=== PATIENT | male | born 1940 | race Caucasian/White ===

== ENCOUNTER → 2023-07-20 14:10 | Outpatient (REF) | payer MEDICARE, BC, SELFPAY | LOC: RAD 14:10 | PROVIDERS: ATTENDING PHYSICIAN Nurse Practitioner Adult Health | DX: R05.3 Chronic cough (principal) | CPT/HCPCS: 71046 ==

== ENCOUNTER → 2024-04-03 14:59 | Outpatient (REF) | payer MEDICARE, BC, SELFPAY | LOC: RCS 14:59 | PROVIDERS: ATTENDING PHYSICIAN Psychiatry & Neurology Neurology; FAMILY PHYSICIAN Internal Medicine | DX: I48.91 Unspecified atrial fibrillation (principal) | CPT/HCPCS: 93005 ==

== ENCOUNTER 2024-12-17 18:07 | Emergency (ER) | payer SELFPAY ==
[2024-12-17 18:09] VITALS: BP 169/84
[2024-12-17] MEDS: TYLENOL 650 MG PO (22:07)
[2024-12-17] MEDS: ADACEL 0.5 ML IM (22:41)
--- NOTE | 2024-12-17 22:46 | ED.GENMED ---
History of Present Illness
General
Chief Complaint: Fall
Source: patient
Exam Limitations: none
Time Seen by Provider: 12/17/24 20:54
Nursing documentation reviewed up to this point in time: agreed with
History of Present Illness
History of Present Illness:
Patient is a 84-year-old male with history atrial fibrillation, hypertension, hyperlipidemia, dementia who presents to the emergency department for evaluation following mechanical fall earlier today. Patient's states he was at memory care at
[facility] and reports that earlier today he was in the bathroom when he missed stepped and fell backwards striking his back on the toilet. She believes he may have hit his head although states there was no loss of consciousness.
Patient has been complaining of pain in his back since fall. He also sustained a skin tear to his left arm.
Patient's states he is at his baseline mental status.
Patient denies any headache or neck pain. He denies any chest pain, shortness of breath, or abdominal pain. No numbness/tingling in lower extremities or weakness. No bowel/bladder incontinence or groin paresthesias.
Past History
Past History
ED Past Medical History: Cancer (Prostate), CVA, GERD, HTN, Hypercholesterolemia, Hyperthyroidism and Other (radiation cystitis)
ED Past Surgical History: Orthopedic and Other (Hernia, partial thyroidectomy, iliostomy Apr)
Social History
Tobacco: Non-smoker
Personal:
Living: with family
Review of Systems
Review of Systems
Allergies reviewed?: Yes
All Other Systems: ROS reviewed and negative except as documented in HPI and ROS
Phy Exam
Physical Exam
Physical Exam:
Vitals: Hypertensive, otherwise vital signs stable. Afebrile
General: Patient is well appearing, no acute distress
Skin: Approximate 11 cm V-shaped laceration to left dorsal forearm.
Head: Normocephalic, atraumatic
Eyes: Sclera nonicteric. EOMs intact. No nystagmus.
Throat: Protecting airway
Neck: Normal ROM, no cervical spine tenderness, no meningismus
Cardiac: Regular rate and rhythm, no murmurs.
Pulm: Normal respiratory effort, no wheezes, rales, rhonchi heard on exam
.
Abdomen: Abdomen soft and nontender. Urostomy in place.
Back: Midline thoracic point tenderness with mild edema. Ecchymoses noted to left flank.
Extremities: No evidence of cyanosis or edema. Laceration to left forearm as above. No evidence of tendon or nerve involvement. Cap refill WNL. Bilateral lower extremities atraumatic and nontender with full range of motion. No bony tenderness
of bilateral upper extremities. Strength 5 out of 5 in bilateral extremities
Neuro: AAOx 2 (baseline). Moving all extremities. No focal deficits. Fluid speech.
Psychiatric: Normal affect.
Course
Orders/Labs/Results
Orders:
Orders
12/17/24 18:18
CT Cervical Spine W/o Iv Contr Urgent
Comment:
Reason For Exam: fall/headstrike
CT Head W/o Iv Contrast Urgent
Comment:
Reason For Exam: fall/headstrike
12/17/24 21:51
Acetaminophen [Tylenol] 650 mg PO NOW STA
Tetanus/Diphth/Acelpertussis [Adacel] 0.5 ml IM .ONCE ONE
12/17/24 21:52
Thoracic Spine wo Contrast CT [CT Thoracic Spine W/o Iv Contr] Urgent
Comment:
Reason For Exam: fall, midline back pain
Vital Signs
Initial and Last Documented VS:
Initial Vital Signs
Temp Pulse Resp BP Pulse Ox
98.2 F 62 18 169/84 95
12/17/24 18:09 12/17/24 18:09 12/17/24 18:09 12/17/24 18:09 12/17/24 18:09
Last Documented Vital Signs
Temp Pulse Resp BP Pulse Ox
98.2 F 82 18 162/80 95
12/17/24 18:09 12/18/24 00:46 12/18/24 00:46 12/18/24 00:46 12/18/24 00:46
Procedures
Laceration Closure
Left Arm:
Status of Wound: clean
Size of Wound in cm: 11
Description of Wound Edges: sharp
Preparation: cleaned with saline
Anesthesia: 1% Lidocaine with epi
Revision/Debridement: routine- no revision
Wound exploration: explored to base- no FB
Type of Closure: single layer closure and interrupted sutures
Skin Closure Material: 5-0 nylon
Number of sutures: 12
MDM/Problems Addressed
Differential Diagnosis Includes:
Not limited to: Laceration, contusion, vertebral fracture, rib fracture, intracerebral hemorrhage, etc.
MDM/Problems Addressed:
84-year-old male presenting after mechanical fall, striking his head and back on toilet. He is not on any oral anticoagulation. No pain in his lower extremities. No chest pain or shortness of breath. No changes in mental status. Vitals and
physical exam as above. Patient has tenderness and ecchymosis to the thoracic spine, as well as large laceration to left forearm which will require primary closure today. Bilateral lower extremities atraumatic and nontender. No evidence of head
or neck trauma. No neurologic findings concerning for cauda equina. ED plan: Will check CT imaging head, cervical spine, thoracic spine. Will update tetanus shot.
Update: CT imaging without any evidence of acute traumatic injuries. He did have improvement in pain with Tylenol. He is ambulating at baseline, just very limited mainly for his transfers.
Verbal consent obtained by patient and family. Laceration on arm thoroughly irrigated with normal saline anesthetized 1% lidocaine with epinephrine. 12 5-0 nylon sutures placed with excellent skin approximation and hemostasis obtained. Dressing
applied. Patient tolerated procedure well.
Ultimately�feel patient stable for discharge back to facility. Fall was mechanical in nature without any traumatic injuries identified necessitating admission to hospital. Very strict return precautions discussed. Discussed wound care and suture
removal in 7 to 10 days. Patient will follow-up with his primary care provider. Patient and patient's family comfortable with plan.
Chronic conditions affecting care:
Atrial fibrillation, dementia, hypertension
Acute Exacerbation and/or Progression of Chronic Illness:
Acutely hypertensive
*Radiology
Radiology exam reviewed: radiology read reviewed
*Pulse Oximetry
SaO2: 95
Oxygen Mode of Delivery: Room air
Patient hypoxic: no
*EKG
Interpreted by ED Provider?: NA
*Lpta Interpretation
Rate: Lpta- N/A
*Critical Care Note
Total Time (30-74mins, 75-104mins- exclusive of procedures): Not Applicable
ED Attending Note
-
Portions of this chart may have been created with voice recognition software.� Occasional wrong word or��sound alike� substitutions may have occurred due to the inherent limitations of voice recognition software.
Discharge Plan
Departure
Patient Disposition: Home (Routine Discharge)
Date of Disposition: 12/18/24
Time of Disposition: 00:25
Patient with high blood pressure during this ER visit?: Yes
Condition: Good
Covid-19: Not Applicable
Discharge Problem:
Fall, Contusion of back, Laceration of forearm, left
Instructions: Wound Care (DC), Head Injury in Adults (DC), Contusion (DC), Laceration Repair With Stitches (DC), BLOOD PRESSURE
Prescriptions:
No Action
levothyroxine 112 MCG tablet
112 mcg PO DAILY AT 0700
pantoprazole 40 MG tablet,delayed release (DR/EC)
40 mg PO DAILY
metoprolol succinate 50 MG tablet extended release 24 hr
50 mg PO DAILY
multivitamin with folic acid [Tab-A-Garrison] 1 TABLET tablet
1 tab PO DAILY
pravastatin 40 MG tablet
40 mg PO HS
escitalopram oxalate 20 MG tablet
10 mg PO HS
tramadol 50 MG tablet
50 mg PO Q8HPRN PRN (Reason: moderate to severe pain)
Patient Comments:
11/23/21pt picked up 07/18/21 #13
acetaminophen [Tylenol Extra Strength] 500 MG tablet
1,000 mg PO Q8HPRN PRN (Reason: mild pain)
bisacodyl [OneLAX Bisacodyl] 10 MG suppository
10 mg MO DAILYPRN PRN (Reason: if no bm from MOM)
Enema 135 ML enema
118 ml MO DAILYPRN PRN (Reason: if no bm from suppository)
irbesartan 150 MG tablet
75 mg PO DAILY
memantine 10 MG tablet
10 mg PO BID
magnesium hydroxide 30 ML suspension
10 ml PO DAILYPRN PRN (Reason: if no bm on 3rd day)
amiodarone [Pacerone] 100 MG tablet
100 mg PO DAILY
coenzyme [id number] 1 CAP capsule
1 cap PO DAILY
PreserVision AREDS 1 CAP capsule
1 cap PO BID
Magnesium 250 MG Tablet
500 mg PO DAILY
polyethylene glycol 3350 17 GRAMS powder in packet
17 grams PO DAILYPRN PRN (Reason: constipation)
ergocalciferol (vitamin D2) 50,000 UNITS capsule
50,000 units PO Q15D
methenamine hippurate 1 GRAM tablet
1 gm PO BID
Probiotic (B. coagulans) 1 EACH capsule,delayed release(DR/EC)
1 ea PO BID
ferrous sulfate [FeroSul] 325 MG tablet
325 mg PO DAILY Qty: 90 0RF
Rx Instructions:
take with Preservision at noon daily
aspirin [Aspir-Low] 81 MG tablet,delayed release (DR/EC)
81 mg PO DAILY Qty: 90 0RF
ketorolac (PF) 0.45 % Dropperette
1 drp OPHTHALMIC (EYE) Q48H
doxycycline hyclate 100 mg capsule
100 mg PO BID Qty: 20 0RF
Referrals:
José Luis Parish MD [Family Provider, Family Practice] - Follow up in 5-7 days
Activity Restrictions/Additional Instructions:
RETURN TO THE EMERGENCY DEPARTMENT WITH ANY SEVERE HEADACHE OR NECK PAIN, NUMBNESS/TINGLING OR WEAKNESS IN EXTREMITIES, INTRACTABLE BACK PAIN, SHORTNESS OF BREATH, CHEST PAIN, ANY SIGNS OF INFECTION FROM WOUND OF LEFT ARM, OR ANY OTHER CONCERNS
- As discussed CT imaging showed no acute abnormalities of the head, cervical spine, or thoracic spine today. You likely sustained a significant contusion to your back.
- You had a large laceration repaired with stitches on your left arm. These will need to be removed in 7 to 10 days. This can be done at your primary care, urgent care, or emergency department. Please keep wound clean and dry. Keep covered until
sutures are removed. Monitor very closely for signs of infection
- You can take Tylenol for any pain.
- Follow-up with primary care for further evaluation/management to ensure that your symptoms are improved
Monitor your symptoms closely AND return to the emergency department with any acute worsening/new symptoms or any other concerns
Interventions
Interventions:
*Risk Screen - Suicide Last Done: 12/17/24 18:09
*General Assessment Last Done: 12/17/24 20:00
*Neglect/Abuse Screening Last Done: 12/17/24 18:09
*ED- Fall Risk Assessment Last Done: 12/17/24 23:41
*ED COVID-19 Vaccine History Last Done: 12/17/24 23:41
*Nursing Disposition Last Done: 12/18/24 00:46
ED-Musculoskeletal Assessment Last Done: 12/17/24 20:00
ED- Neurological Assessment Last Done: 12/17/24 20:00
ED-Skin Assessment Last Done: 12/17/24 20:00
Discharge Date and Time
Discharge Date/Time: 12/18/24 00:47
Print Language: MACANESE
[2024-12-18 00:46] VITALS: BP 162/80
== END 2024-12-18 00:47 | disposition home or self-care (01) ==
LOC: EMR 18:07
PROVIDERS: EMERGENCY PHYSICIAN Student in an Organized Health Care Education/Training Program; FAMILY PHYSICIAN Family Medicine
DX: S20.222A Contusion of left back wall of thorax, initial encounter (principal); S51.812A Laceration without foreign body of left forearm, initial encounter; W19.XXXA Unspecified fall, initial encounter; Z23 Encounter for immunization; I48.91 Unspecified atrial fibrillation; I10 Essential (primary) hypertension; E78.00 Pure hypercholesterolemia, unspecified; F03.90 Unspecified dementia, unspecified severity, without behavioral disturbance, psychotic disturbance, mood disturbance, and anxiety; Z86.73 Personal history of transient ischemic attack (TIA), and cerebral infarction without residual deficits
CPT/HCPCS: 99284; 12004; 90471; 70450; 72125; 72128; 90715

== ENCOUNTER 2025-03-11 19:48 | Emergency (ER) | payer MEDICARE, BC, SELFPAY ==
[2025-03-11 19:52] VITALS: BP 154/81; BMI 28.3
[2025-03-11 20:00] VITALS: BP 137/83
[2025-03-11 21:00] VITALS: BP 156/86
--- NOTE | 2025-03-11 21:17 | ED.MUSCINJ ---
HPI-Injury
General
Chief Complaint: Fall
Source: patient
Exam Limitations: none
Time Seen by Provider: 03/11/25 20:58
Nursing documentation reviewed up to this point in time: agreed with
History of Present Illness-Injury
Is this injury a work related problem?: No
Initial Injury comments:
Patient to ED after unwitnessed fall. History of dementia. He does not recall injury. Sustained as skin tear to left dorsal hand. To ED via EMS for eval. and daughter in room wth him.
Past History
Past History
ED Past Medical History: Cancer (Prostate), CVA, GERD, HTN, Hypercholesterolemia, Hyperthyroidism and Other (radiation cystitis)
ED Past Surgical History: Orthopedic and Other (Hernia, partial thyroidectomy, iliostomy Apr)
Social History
Tobacco: Non-smoker
Personal:
Living: with family
Review of Systems
Review of Systems
Allergies reviewed?: Yes
All Other Systems: ROS reviewed and negative except as documented in HPI and ROS
Constitutional: Reports no symptoms
EENT: Reports no symptoms
Respiratory: Reports no symptoms
Cardiac: Reports no symptoms
ABD/GI: Reports no symptoms
Musculoskeletal: Reports joint pain (pain to left dorsal hand)
Skin: Reports other (skin tear left dorsal hand)
Neurological: Reports no symptoms
Psychiatric: Reports no symptoms
Musculoskeletal Injury Exam
Musculoskeletal Injury Exam
Left Dorsal Hand:
Pain with Movement?: Moderate
Tender to palpation?: Moderate
Soft tissue swelling?: Mild
External deformity and angulation?: None
Joint effusion?: None
Contusion?: Moderate
Hematoma-local bleeding into tissue?: Moderate
Strain- Sprain- Tear (Connective tissue injury)?: None
Crepitus with movement?: No
Joint instability?: No
Malalignment/deformity?: No
Range of motion: Full
Distal skin color and temperature: normal-warm & good color
Capillary Refill: normal
Normal distal neurovascular exam?: Yes
Skin Exam
Laceration
Left Dorsal Hand:
Length in cm: 2
Orientation: vertical
Type of Laceration: simple
Any active bleeding?: no active bleeding
Distal skin color and temperature: normal-warm & good color
Normal distal neurovascular exam: Yes
Range of motion: full
Phy Exam
General Physical Exam
General Presentation: well appearing and no apparent distress
General age: appears stated age
General Skin: warm and dry
General Habitus: normal
Eye Exam
Eye Exam: PERRL and EOMI
Gastrointestinal Exam
Gastrointestinal Exam: non tender and soft
Neurological Exam
Neurological Exam: alert
Musculoskeletal Exam
Musculoskeletal Exam: full ROM and neuro vasc intact
Skin Exam
Skin Exam: normal color, warm/dry and no rash
Psychiatric Exam
Psychiatric Exam: normal mood/affect
Injury Course
Orders/Labs/Results
Orders:
Orders
03/11/25 21:16
CT Head W/o Iv Contrast Urgent
Comment:
Reason For Exam: fall
Hand, Left 3 View [CR Hand - Left Min 3 Views] Urgent
Comment:
Reason For Exam: fall
Procedures
Laceration Closure
Left Dorsal Hand:
Status of Wound: clean
Description of Wound Edges: sharp
Preparation: cleaned with saline
Revision/Debridement: routine- no revision
Wound exploration: explored to base- no FB
Type of Closure: Dermabond-skin glue
*Radiology
Radiology exam reviewed: radiology read reviewed
*Pulse Oximetry
SaO2: 96
Oxygen Mode of Delivery: Room air
Patient hypoxic: no
*Critical Care Note
Total Time (30-74mins, 75-104mins- exclusive of procedures): Not Applicable
Update Note
Update Note:
Patient to ED after fall at SNF. Head CT neg for acute findings. reports neurologically he is at his baseline. He has a skin tear to left dorsal hand which was closed bedside. No evidence of fracture on xray. No other injuries noted on
exam. WIll discharge back to SNF. He will followupwtih PCP in AM
ED Attending Note
-
Portions of this chart may have been created with voice recognition software.� Occasional wrong word or��sound alike� substitutions may have occurred due to the inherent limitations of voice recognition software.
Discharge Plan
Departure
Patient Disposition: Home (Routine Discharge)
Date of Disposition: 03/11/25
Time of Disposition: 22:30
Patient with high blood pressure during this ER visit?: No
Condition: Good
Covid-19: Not Applicable
Discharge Problem:
Head injury, Laceration of hand
Instructions: Laceration Repair With Glue (DC), Head Injury in Adults (DC), Contusion (DC)
Prescriptions:
No Action
levothyroxine 112 MCG tablet
112 mcg PO DAILY AT 0700
pantoprazole 40 MG tablet,delayed release (DR/EC)
40 mg PO DAILY
metoprolol succinate 50 MG tablet extended release 24 hr
50 mg PO DAILY
multivitamin with folic acid [Tab-A-Garrison] 1 TABLET tablet
1 tab PO DAILY
pravastatin 40 MG tablet
40 mg PO HS
escitalopram oxalate 20 MG tablet
10 mg PO HS
tramadol 50 MG tablet
50 mg PO Q8HPRN PRN (Reason: moderate to severe pain)
Patient Comments:
11/23/21pt picked up 07/18/21 #13
acetaminophen [Tylenol Extra Strength] 500 MG tablet
1,000 mg PO Q8HPRN PRN (Reason: mild pain)
bisacodyl [OneLAX Bisacodyl] 10 MG suppository
10 mg DE DAILYPRN PRN (Reason: if no bm from MOM)
Enema 135 ML enema
118 ml DE DAILYPRN PRN (Reason: if no bm from suppository)
irbesartan 150 MG tablet
75 mg PO DAILY
memantine 10 MG tablet
10 mg PO BID
magnesium hydroxide 30 ML suspension
10 ml PO DAILYPRN PRN (Reason: if no bm on 3rd day)
amiodarone [Pacerone] 100 MG tablet
100 mg PO DAILY
coenzyme [id number] E 1 CAP capsule
1 cap PO DAILY
PreserVision AREDS 1 CAP capsule
1 cap PO BID
Magnesium 250 MG Tablet
500 mg PO DAILY
polyethylene glycol 3350 17 GRAMS powder in packet
17 grams PO DAILYPRN PRN (Reason: constipation)
ergocalciferol (vitamin D2) 50,000 UNITS capsule
50,000 units PO Q15D
methenamine hippurate 1 GRAM tablet
1 gm PO BID
Probiotic (B. coagulans) 1 EACH capsule,delayed release(DR/EC)
1 ea PO BID
ferrous sulfate [FeroSul] 325 MG tablet
325 mg PO DAILY Qty: 90 0RF
Rx Instructions:
take with Preservision at noon daily
aspirin [Aspir-Low] 81 MG tablet,delayed release (DR/EC)
81 mg PO DAILY Qty: 90 0RF
ketorolac (PF) 0.45 % Dropperette
1 drp OPHTHALMIC (EYE) Q48H
doxycycline hyclate 100 mg capsule
100 mg PO BID Qty: 20 0RF
Referrals:
José Luis Parish MD [Family Provider, Family Practice] - Follow up in 2-3 days
Interventions
Interventions:
*Risk Screen - Suicide Last Done: 03/11/25 19:52
*General Assessment Last Done: 03/11/25 19:52
*Neglect/Abuse Screening Last Done: 03/11/25 19:52
*ED- Fall Risk Assessment Last Done: 03/11/25 19:52
*ED COVID-19 Vaccine History Last Done: 03/11/25 19:52
*ED Influenza Vaccine History Last Done: 03/11/25 19:52
*Nursing Disposition Last Done: 03/11/25 22:53
ED-Musculoskeletal Assessment Last Done: 03/11/25 19:52
ED- Neurological Assessment Last Done: 03/11/25 19:52
ED-Skin Assessment Last Done: 03/11/25 19:52
Discharge Date and Time
Discharge Date/Time: 03/11/25 22:50
Print Language: FRISIAN
== END 2025-03-11 22:50 | disposition home or self-care (01) ==
LOC: EMR 19:48
PROVIDERS: EMERGENCY PHYSICIAN Emergency Medicine; FAMILY PHYSICIAN Family Medicine
DX: S09.90XA Unspecified injury of head, initial encounter (principal); S61.412A Laceration without foreign body of left hand, initial encounter; W19.XXXA Unspecified fall, initial encounter; E78.00 Pure hypercholesterolemia, unspecified; F03.90 Unspecified dementia, unspecified severity, without behavioral disturbance, psychotic disturbance, mood disturbance, and anxiety; I10 Essential (primary) hypertension; Z86.73 Personal history of transient ischemic attack (TIA), and cerebral infarction without residual deficits
CPT/HCPCS: 12001; 99284; 70450; 73130

== ENCOUNTER 2025-04-22 15:09 | Emergency (ER) | payer MEDICARE, BC, SELFPAY ==
[2025-04-22] VITALS (7 sets, daily range): BP systolic 116–170; BP diastolic 57–92; BMI 26.5
[2025-04-22 15:43] LABS: Hematocrit 39.5 % (39.0-52.0); Hemoglobin 12.9 g/dL (13.0-18.0); Mean Corp Hgb Conc. 32.7 g/dL (33.0-37.0); Mean Corpuscular Volume 92.3 fL (80.0-94.0); Nucleated Red Blood Cells % 0 % (-); Platelet Count 168 10^3/uL (130-400); Red Cell Dist. Width 14.3 % (11.5-14.5)
[2025-04-22 16:05] LABS: ALT (SGPT) 17 U/L (0-50); AST (SGOT) 24 U/L (17-59); Albumin 4.0 g/dl (3.5-5.0); Alkaline Phosphatase 118 U/L (38-126); Blood Urea Nitrogen 23 mg/dl (9-20); Calcium 8.8 mg/dl (8.4-10.2); Carbon Dioxide 31 mmol/L (22-30); Chloride 103 mmol/L (98-107); Estimated Creatinine Clearance 70 ml/min; Glucose 117 mg/dl (70-99); Potassium 4.3 mmol/L (3.5-5.1); Sodium 139 mmol/L (135-145); Total Protein 7.0 g/dl (6.3-8.2); eGFR > 60.00
--- NOTE | 2025-04-22 16:15 | ED.GENMED ---
History of Present Illness
General
Chief Complaint: Change in Mental Status
Source: patient and family
Exam Limitations: none
Time Seen by Provider: 04/22/25 15:37
Nursing documentation reviewed up to this point in time: agreed with
History of Present Illness
History of Present Illness:
Elderly male with dementia urostomy presents with lethargy increased sleepiness had to have a sternal rub today to get up, states he usually walks with a walker today not so much, was on Cipro for UTI then Zithromax and Levaquin has had
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
Past History
Past History
ED Past Medical History: Cancer (Prostate), CVA, GERD, HTN, Hypercholesterolemia, Hyperthyroidism and Other (radiation cystitis)
ED Past Surgical History: Orthopedic and Other (Hernia, partial thyroidectomy, iliostomy Apr)
Social History
Tobacco: Non-smoker
Personal:
Living: with family
Phy Exam
Physical Exam
Physical Exam:
Physical Exam
General: no apparent distress, not acutely ill
Neck: No jaw
Heart: s1/s2 regular rate and rhythm, no murmur. equal radial pulses.
Lungs: no acute respiratory distress. clear bilaterally
Abdomen: Not tender urostomy in the right lower abdomen clear urine
Neuro: alert and oriented. no focal neurological deficits
Skin: no rash
Psychiatric: well kept. interactive and cooperative
Extremities: Trace edema
Course
Orders/Labs/Results
Orders:
Orders
04/22/25 15:30
Complete Blood Count/With Diff Urgent
Comprehensive Metabolic Panel Urgent
NT-proBNP Urgent
Comment: ADD ON
04/22/25 15:43
CR Chest - 2 Views Urgent
Comment:
Reason For Exam: cough
04/22/25 15:44
Add On- LAB Urgent
Tests Added?: bnp
Electrocardiogram (*1) Urgent
Reason for Study: Shortness of Breath
CT Head W/o Iv Contrast Urgent
Comment:
Reason For Exam: lethargy
EKG- Treatment ONCE
Abnormal Lab Results
04/22/25
15:30
RBC 4.28 L 10^6/uL
(4.70-6.10)
Hgb 12.9 L g/dL
(13.0-18.0)
MCHC 32.7 L g/dL
(33.0-37.0)
Abs Immat Gran (auto) 0.1 H 10^3/uL
(0-0.05)
Absolute Monos (auto) 0.7 H 10^3/uL
(0.1-0.6)
Immature Gran % 0.7 H %
(0-0.5)
Lymphocytes % 19.3 L %
(20.5-51.1)
Monocytes % 9.9 H %
(1.7-9.3)
Carbon Dioxide 31 H mmol/L
(22-30)
BUN 23 H mg/dl
(9-20)
Glucose 117 H mg/dl
(70-99)
04/22/25 15:30
04/22/25 15:30
Vital Signs
Initial and Last Documented VS:
Initial Vital Signs
Temp Pulse Resp BP Pulse Ox
97.6 F 65 16 170/74 96
04/22/25 15:12 04/22/25 15:12 04/22/25 15:12 04/22/25 15:12 04/22/25 15:12
Last Documented Vital Signs
Temp Pulse Resp BP Pulse Ox
97.6 F 65 14 153/92 98
04/22/25 15:12 04/22/25 17:45 04/22/25 17:45 04/22/25 17:18 04/22/25 17:45
MDM/Problems Addressed
Differential Diagnosis Includes:
Deconditioning heart failure pneumonia electrolyte abnormality occult trauma stroke
MDM/Problems Addressed:
Confusion d
Chronic conditions affecting care: Neurological disorder
Acute Exacerbation and/or Progression of Chronic Illness: Neurological disorder
*Radiology
Radiology exam reviewed: radiology read reviewed
*Pulse Oximetry
SaO2: 96
Oxygen Mode of Delivery: Room air
Patient hypoxic: no
*EKG
Interpreted by ED Provider?: Yes
Interpretation: abnormal
Comparison EKG: no comparison EKG present
Heart Rate: 7
Rate: normal
Rhythm: sinus
Ischemia: non-specific ST changes
*Clay Temperer Interpretation
Rate: normal
Interpretation: normal
Heart Rate: 78
*Critical Care Note
Total Time (30-74mins, 75-104mins- exclusive of procedures): Not Applicable
Update Note
Update Note:
Update, labs noted patient feeling better main complaint is a cough, he is on numerous rounds of antibiotics will try some Mucinex that is baseline family will take him
ED Attending Note
-
Portions of this chart may have been created with voice recognition software.� Occasional wrong word or��sound alike� substitutions may have occurred due to the inherent limitations of voice recognition software.
Discharge Plan
Departure
Patient Disposition: Home (Routine Discharge)
Date of Disposition: 04/22/25
Time of Disposition: 18:13
Patient with high blood pressure during this ER visit?: No
Condition: Good
Discharge Problem:
Weakness
Instructions: Altered Mental Status (DC)
Prescriptions:
New
guaifenesin [Mucinex] 600 mg tablet extended release 12hr
600 mg PO BID PRN (Reason: Congestion) Qty: 20 0RF
No Action
pantoprazole 40 MG tablet,delayed release (DR/EC)
40 mg PO QPM
metoprolol succinate 50 MG tablet extended release 24 hr
50 mg PO DAILY
multivitamin with folic acid [Tab-A-Garrison] 1 TABLET tablet
1 tab PO DAILY
pravastatin 40 MG tablet
40 mg PO QPM
escitalopram oxalate 20 MG tablet
20 mg PO HS
irbesartan 150 MG tablet
75 mg PO DAILY
memantine 10 MG tablet
10 mg PO BID
magnesium oxide 250 mg magnesium Tablet
250 mg PO DAILY Qty: 0
amiodarone [Pacerone] 100 MG tablet
100 mg PO DAILY
PreserVision AREDS 1 CAP capsule
1 cap PO BID
polyethylene glycol 3350 17 GRAMS powder in packet
17 grams PO DAILYPRN PRN (Reason: constipation)
ergocalciferol (vitamin D2) 50,000 UNITS capsule
50,000 units PO Q15D
methenamine hippurate 1 GRAM tablet
1 gm PO BID
ketorolac (PF) 0.45 % Dropperette
1 drp RIGHT EYE DAILY
quetiapine [Seroquel] 25 mg Tablet
25 mg PO BID
quetiapine [Seroquel] 25 mg Tablet
25 mg PO DAILYPRN PRN (Reason: anxiety)
prednisolone acetate 1 % Drops,Suspension
1 drp RIGHT EYE DAILY
levothyroxine [Synthroid] 125 mcg Tablet
125 mcg PO DAILY
aspirin 81 mg Tablet,Chewable
81 mg PO DAILY
cefuroxime axetil 500 mg Tablet
500 mg PO BID
Rx Instructions:
for 7 days starting 04/15/25
coQ10 (ubiquinol) 100 mg Capsule
100 mg PO DAILY
Referrals:
José Luis Parish MD [Family Provider, Family Practice]
Interventions
Interventions:
*Risk Screen - Suicide Last Done: 04/22/25 15:12
*General Assessment Last Done: 04/22/25 15:12
*Neglect/Abuse Screening Last Done: 04/22/25 15:12
*ED- Fall Risk Assessment Last Done: 04/22/25 15:12
*ED COVID-19 Vaccine History Last Done: 04/22/25 15:12
*ED Influenza Vaccine History Last Done: 04/22/25 15:12
ED- Pulmonary Assessment Last Done: 04/22/25 15:33
ED- Neurological Assessment Last Done: 04/22/25 15:23
ED- Cardiac Assessment Last Done: 04/22/25 15:32
Discharge Date and Time
Print Language: LEBANESE
== END 2025-04-22 19:27 | disposition home or self-care (01) ==
LOC: EMR 15:09
PROVIDERS: Emergency Medicine; EMERGENCY PHYSICIAN Emergency Medicine; FAMILY PHYSICIAN Family Medicine
DX: R53.1 Weakness (principal); E78.00 Pure hypercholesterolemia, unspecified; I10 Essential (primary) hypertension; F03.90 Unspecified dementia, unspecified severity, without behavioral disturbance, psychotic disturbance, mood disturbance, and anxiety; Z86.73 Personal history of transient ischemic attack (TIA), and cerebral infarction without residual deficits
CPT/HCPCS: 99285; 70450; 71046; 80053; 83880; 85025; 93005